=== PATIENT | female | born 1985 | race Caucasian/White ===

== ENCOUNTER 2017-10-09 16:25 | Outpatient (CLI) | payer BC ==
[2017-10-09 16:48] VITALS: BP 145/95
[2017-10-09 17:10] VITALS: BP 132/78
[2017-10-09 17:23] LABS: EOSINOPHIL (%) 0.3 % (0-5); HEMATOCRIT 33.1 % (36.0-46.0); IMMATURE GRANULOCYTE (%) 0.7 % (0.0-0.7); IMMATURE GRANULOCYTE COUNT 0.1 K/uL; INSTRUMENT ABS NEUTROPHIL CT 7.8 K/uL; MCH 28.3 PG (29.0-34.0); MCHC 32.6 G/DL (30.0-36.0); MCV 86.6 FL (83-99); MEAN PLAT.VOLUME 10.7 uM^3 (9.5-12.4); MONOCYTE (%) 6.8 % (3-12); MONOCYTE COUNT 0.8 K/uL (0-0.8); NEUTROPHIL (%) 66.2 % (45-76); NEUTROPHIL COUNT 7.8 K/uL (1.8-6.4); PLATELET COUNT 308 K/uL (156-360); RED BLOOD COUNT 3.82 M/uL (3.80-5.20); WHITE BLOOD COUNT 11.8 K/uL (4.1-10.2)
[2017-10-09 17:33] VITALS: BP 137/84
[2017-10-09 17:35] LABS: ANION GAP 11 MEQ/L (2-14); CHLORIDE 105 MEQ/L (99-109); POTASSIUM 3.6 MEQ/L (3.7-5.4); SAMPLE HEMOLYSIS CHECK 0; SAMPLE ICTERIC CHECK 0; SAMPLE LIPEMIA CHECK 0; SODIUM 135 MEQ/L (136-147); TOTAL BILIRUBIN 0.2 MG/DL (0.0-1.0)
[2017-10-09 17:40] LABS: ALKALINE PHOSPHATASE 89 IU/L (3-129); GFR ESTIMATE (CALCULATED) > 59 mL/min/; GLUCOSE 93 mg/dL (70-99); UREA NITROGEN (BUN) 10 mg/dL (9-23)
[2017-10-09 18:10] VITALS: BP 124/82
[2017-10-09 18:12] LABS: UR CREATININE CONCENTRATION 60.7 MG/DL
[2017-10-10] MEDS ORDERED: EFFEXOR37.5 MG PO (13:00)
[2017-10-10] MEDS ORDERED: PRENATAL TABLE1 EAC3 PO (13:00)
[2017-10-10] MEDS ORDERED: LABETALOL HCL100 MG PO (13:55)
== END 2017-10-09 18:50 | disposition home or self-care (01) ==
LOC: LDRP-OP 16:25 → 2WEST 16:29
PROVIDERS: Midwife
DX: O13.3 Gestational [pregnancy-induced] hypertension without significant proteinuria, third trimester (principal); O99.213 Obesity complicating pregnancy, third trimester; E66.9 Obesity, unspecified; Z68.41 Body mass index [BMI] 40.0-44.9, adult; O99.343 Other mental disorders complicating pregnancy, third trimester; F32.9 Major depressive disorder, single episode, unspecified; F41.9 Anxiety disorder, unspecified; Z90.49 Acquired absence of other specified parts of digestive tract; Z3A.35 35 weeks gestation of pregnancy; Z86.19 Personal history of other infectious and parasitic diseases
CPT/HCPCS: 59025; 80053; 82570; 84156; 85025; G0378

== ENCOUNTER 2017-10-10 12:19 | Outpatient (CLI) | payer BC ==
[~2017-10-10] VITALS: Ht 160 cm; Wt 63.6 kg
[2017-10-10 12:50] VITALS: BP 132/89
[2017-10-10] MEDS ORDERED: PRENATAL TABLE1 EAC3 PO (13:00)
[2017-10-10] MEDS ORDERED: EFFEXOR37.5 MG PO (13:00)
[2017-10-10 13:06] VITALS: BP 127/68
[2017-10-10 13:21] VITALS: BP 129/78
[2017-10-10 13:36] VITALS: BP 116/72
[2017-10-10 13:51] VITALS: BP 114/67
[2017-10-10] MEDS ORDERED: LABETALOL HCL100 MG PO (13:55)
[2017-10-10 14:48] LABS: EOSINOPHIL (%) 0.4 % (0-5); HEMATOCRIT 32.8 % (36.0-46.0); IMMATURE GRANULOCYTE (%) 0.5 % (0.0-0.7); IMMATURE GRANULOCYTE COUNT 0.1 K/uL; LYMPHOCYTE COUNT 2.7 K/uL (1.0-2.8); MCHC 32.3 G/DL (30.0-36.0); MCV 86.5 FL (83-99); MEAN PLAT.VOLUME 10.5 uM^3 (9.5-12.4); MONOCYTE (%) 5.8 % (3-12); MONOCYTE COUNT 0.6 K/uL (0-0.8); NEUTROPHIL (%) 66.9 % (45-76); PLATELET COUNT 321 K/uL (156-360); RBC DIS.WIDTH-CV 15.1 % (11.8-14.6); RBC DIS.WIDTH-SD 47.2 % (39-53); RED BLOOD COUNT 3.79 M/uL (3.80-5.20); WHITE BLOOD COUNT 10.4 K/uL (4.1-10.2)
== END 2017-10-10 14:45 | disposition home or self-care (01) ==
LOC: LDRP-OP 12:19 → 2WEST 12:20 → LDRP-OP 12-12 19:19
PROVIDERS: Obstetrics & Gynecology Gynecology
DX: O13.3 Gestational [pregnancy-induced] hypertension without significant proteinuria, third trimester (principal); Z3A.35 35 weeks gestation of pregnancy
CPT/HCPCS: 59025; 85025; G0378

== ENCOUNTER 2017-10-22 18:03 | Inpatient (IN) | payer BC ==
[~2017-10-22] VITALS: Ht 152.4 cm; Wt 113.3 kg
[2017-10-22] VITALS (10 sets, daily range): BP systolic 117–144; BP diastolic 62–84
[~2017-10-22 18:03] MED LIST: EFFEXOR37.5 MG PO; LABETALOL HCL100 MG PO; PRENATAL TABLE1 EAC3 PO
[2017-10-22 19:20] LABS: BASOPHIL (%) 0.5 % (0-1); BASOPHIL COUNT 0.1 K/uL (0-0.1); EOSINOPHIL (%) 0.6 % (0-5); EOSINOPHIL COUNT 0.1 K/uL (0-0.3); HEMATOCRIT 32.7 % (36.0-46.0); HEMOGLOBIN 10.6 G/DL (11.9-15.5); IMMATURE GRANULOCYTE (%) 0.9 % (0.0-0.7); LYMPHOCYTE (%) 26.8 % (15-42); LYMPHOCYTE COUNT 3.4 K/uL (1.0-2.8); MCH 28.5 PG (29.0-34.0); MCHC 32.4 G/DL (30.0-36.0); MCV 87.9 FL (83-99); MONOCYTE (%) 6.1 % (3-12); MONOCYTE COUNT 0.8 K/uL (0-0.8); NEUTROPHIL (%) 65.1 % (45-76); NEUTROPHIL COUNT 8.2 K/uL (1.8-6.4); PLATELET COUNT 311 K/uL (156-360); RBC DIS.WIDTH-CV 15.8 % (11.8-14.6); RBC DIS.WIDTH-SD 49.8 % (39-53); RED BLOOD COUNT 3.72 M/uL (3.80-5.20); WHITE BLOOD COUNT 12.5 K/uL (4.1-10.2)
[2017-10-22 19:38] LABS: ALBUMIN 3.2 G/DL (3.2-4.8); CHLORIDE 109 MEQ/L (99-109); POTASSIUM 3.7 MEQ/L (3.7-5.4); SODIUM 138 MEQ/L (136-147); TOTAL BILIRUBIN 0.2 MG/DL (0.0-1.0)
[2017-10-22 19:44] LABS: ALKALINE PHOSPHATASE 103 IU/L (3-129); ALT (GPT) 13 IU/L (3-49); AST (GOT) 10 IU/L (2-34); CREATININE 0.6 MG/DL (0.6-1.3); GFR ESTIMATE (CALCULATED) > 59 mL/min/; GLUCOSE 105 mg/dL (70-99); TOTAL PROTEIN 6.1 G/DL (6.4-8.3); UREA NITROGEN (BUN) 8 mg/dL (9-23)
[2017-10-22 19:57] LABS: UR CREATININE CONCENTRATION 133.2 MG/DL
[2017-10-23] VITALS (29 sets, daily range): BP systolic 95–148; BP diastolic 55–90
[2017-10-24] VITALS (18 sets, daily range): BP systolic 121–150; BP diastolic 55–77
[2017-10-24] MEDS ORDERED: IBUPROFEN800 MG PO (09:10)
[2017-10-25 07:17] LABS: BASOPHIL (%) 0.3 % (0-1); BASOPHIL COUNT 0.1 K/uL (0-0.1); EOSINOPHIL COUNT 0.2 K/uL (0-0.3); HEMATOCRIT 26.1 % (36.0-46.0); IMMATURE GRANULOCYTE (%) 0.6 % (0.0-0.7); LYMPHOCYTE (%) 18.7 % (15-42); LYMPHOCYTE COUNT 2.7 K/uL (1.0-2.8); MCH 28.6 PG (29.0-34.0); MCHC 32.2 G/DL (30.0-36.0); MCV 88.8 FL (83-99); MONOCYTE (%) 4.8 % (3-12); MONOCYTE COUNT 0.7 K/uL (0-0.8); NEUTROPHIL (%) 74.6 % (45-76); NEUTROPHIL COUNT 10.9 K/uL (1.8-6.4); PLATELET COUNT 231 K/uL (156-360); RBC DIS.WIDTH-CV 15.9 % (11.8-14.6); RBC DIS.WIDTH-SD 50.8 % (39-53); WHITE BLOOD COUNT 14.6 K/uL (4.1-10.2)
[2017-10-25 07:24] LABS: HEMOGLOBIN 8.4 G/DL (11.9-15.5); RED BLOOD COUNT 2.94 M/uL (3.80-5.20)
[2017-10-25 07:46] VITALS: BP 123/71
[2017-10-25 11:13] VITALS: BP 116/73
[2017-10-25 15:37] VITALS: BP 126/80
[2017-10-26 10:48] VITALS: BP 127/71
[2017-10-26 14:35] VITALS: BP 135/72
== END 2017-10-26 18:30 | disposition home or self-care (01) | DRG 775 ==
LOC: LDRP-OP 18:03 → 2WEST 18:05 → LDRP-OP 12-12 15:30
PROVIDERS: Nurse Practitioner
PROC: 3E0P7VZ Introduction of Hormone into Female Reproductive, Via Natural or Artificial Opening (ICD-10-PCS; principal; 2017-10-22)
PROC: 3E033VJ Introduction of Other Hormone into Peripheral Vein, Percutaneous Approach (ICD-10-PCS; principal; 2017-10-22)
PROC: 3E0S3BZ Introduction of Anesthetic Agent into Epidural Space, Percutaneous Approach (ICD-10-PCS; 2017-10-23)
PROC: 10907ZC Drainage of Amniotic Fluid, Therapeutic from Products of Conception, Via Natural or Artificial Opening (ICD-10-PCS; 2017-10-23)
PROC: 00HU33Z Insertion of Infusion Device into Spinal Canal, Percutaneous Approach (ICD-10-PCS; 2017-10-23)
PROC: 0KQM0ZZ Repair Perineum Muscle, Open Approach (ICD-10-PCS; 2017-10-24)
PROC: 10D07Z6 Extraction of Products of Conception, Vacuum, Via Natural or Artificial Opening (ICD-10-PCS; 2017-10-24)
DX: O70.1 Second degree perineal laceration during delivery (principal); Z68.41 Body mass index [BMI] 40.0-44.9, adult; O13.4 Gestational [pregnancy-induced] hypertension without significant proteinuria, complicating childbirth; O99.214 Obesity complicating childbirth; O76 Abnormality in fetal heart rate and rhythm complicating labor and delivery; E66.9 Obesity, unspecified; F32.9 Major depressive disorder, single episode, unspecified; O99.344 Other mental disorders complicating childbirth; Z37.0 Single live birth
CPT/HCPCS: 80053; 82570; 84156; 85025; C1755; G0378; J3010; J7120